=== PATIENT | female | born 1975 | race African-American/Black ===

== ENCOUNTER 2016-06-10 17:37 | Emergency (ER) | payer OTHER ==
[~2016-06-10] VITALS: Ht 152.4 cm; Wt 60.9 kg
[~2016-06-10 17:37] MED LIST: FLAGYL500 MG PO; LATUDA40 MG PO; MEDROL DOSEPAK4 MG PO; MOTRIN800 MG PO; NAPROSYN500 MG PO; NOHOMEMEDS; PREDNISONE10 MG PO; PROVENTIL HFA6.7 GM IH; SEROQUEL50 MG PO; VALIUM5 MG PO; ZITHROMAX Z-PA250 MG PO; ZOLOFT
[2016-06-10 18:29] LABS: EOSINOPHIL (%) 0.4 % (0-5); IMMATURE GRANULOCYTE (%) 0.3 % (0.0-0.7); IMMATURE GRANULOCYTE COUNT 0.3 K/uL; LYMPHOCYTE COUNT 2.1 K/uL (1.0-2.8); MCH 29.8 PG (29.0-34.0); MCHC 33.9 G/DL (30.0-36.0); MEAN PLAT.VOLUME 10.7 uM^3 (9.5-12.4); MONOCYTE (%) 8.9 % (3-12); NEUTROPHIL (%) 70.5 % (45-76); NEUTROPHIL COUNT 7.5 K/uL (1.8-6.4); PLATELET COUNT 263 K/uL (156-360); RBC DIS.WIDTH-CV 12.3 % (11.8-14.6); RBC DIS.WIDTH-SD 38.8 % (39-53); RED BLOOD COUNT 4.09 M/uL (3.80-5.20); WHITE BLOOD COUNT 10.7 K/uL (4.1-10.2)
[2016-06-10 18:37] LABS: CHLORIDE 104 mEq/L (99-109); POTASSIUM 3.9 mEq/L (3.7-5.4); SODIUM 136 mEq/L (136-147)
[2016-06-10 18:39] LABS: GLUCOSE 90 mg/dL (70-99)
[2016-06-10 18:40] LABS: ANION GAP 9 MEQ/L (2-14)
[2016-06-10 18:43] LABS: ALKALINE PHOSPHATASE 88 IU/L (3-129); GFR ESTIMATE (CALCULATED) > 59 mL/min/
[2016-06-10 18:44] LABS: UREA NITROGEN (BUN) 5 mg/dL (9-23)
[2016-06-10 18:46] LABS: LIPASE 45 U/L (1.0-51.0)
[2016-06-10 18:52] LABS: QUANTITATIVE HCG < 4.0 MIU/ML
[2016-06-10] MEDS ORDERED: FLAGYL500 MG PO (21:11)
[2016-06-10] MEDS ORDERED: VIBRAMYCIN100 MG PO (21:11)
[2016-06-10] MEDS ORDERED: NORCO 7.5/321 TABLET PO (21:11)
[2016-06-10] MEDS ORDERED: MOTRIN800 MG PO (21:11)
[2016-06-10 21:42] VITALS: BP 116/85
[2016-06-13 13:32] LABS: CHLAMYDIA TRACHOMATIS NEGATIVE; NEISSERIA GONORRHOEAE POSITIVE
== END 2016-06-10 21:44 | disposition home or self-care (01) ==
LOC: EME → EDBD 17:37 → EME 21:44
PROVIDERS: Physician Assistant
DX: N73.9 Female pelvic inflammatory disease, unspecified (principal); N83.201 Unspecified ovarian cyst, right side; D25.9 Leiomyoma of uterus, unspecified; R11.2 Nausea with vomiting, unspecified; N20.0 Calculus of kidney; Z11.3 Encounter for screening for infections with a predominantly sexual mode of transmission; Z87.442 Personal history of urinary calculi; F17.200 Nicotine dependence, unspecified, uncomplicated
CPT/HCPCS: 74176; 76856; 80053; 81003; 83690; 84702; 85025; 87210; 87491; 87591; 99281; 99284; J0696; J3010

== ENCOUNTER 2016-11-26 19:37 | Emergency (ER) | payer OTHER ==
[~2016-11-26] VITALS: Ht 152.4 cm; Wt 63.2 kg
[~2016-11-26 19:37] MED LIST changes: +NORCO 7.5/321 TABLET PO; +VIBRAMYCIN100 MG PO
[2016-11-26 20:47] LABS: EOSINOPHIL (%) 0.5 % (0-5); HEMATOCRIT 36.8 % (36.0-46.0); IMMATURE GRANULOCYTE (%) 0.4 % (0.0-0.7); INSTRUMENT ABS NEUTROPHIL CT 5.5 K/uL; LYMPHOCYTE COUNT 1.3 K/uL (1.0-2.8); MCH 30.1 PG (29.0-34.0); MCHC 33.4 G/DL (30.0-36.0); MEAN PLAT.VOLUME 10.1 uM^3 (9.5-12.4); MONOCYTE (%) 8.6 % (3-12); MONOCYTE COUNT 0.7 K/uL (0-0.8); NEUTROPHIL (%) 72.4 % (45-76); NEUTROPHIL COUNT 5.5 K/uL (1.8-6.4); PLATELET COUNT 297 K/uL (156-360); RBC DIS.WIDTH-CV 12.7 % (11.8-14.6); RBC DIS.WIDTH-SD 41.9 % (39-53); RED BLOOD COUNT 4.09 M/uL (3.80-5.20); WHITE BLOOD COUNT 7.6 K/uL (4.1-10.2)
[2016-11-26 21:01] LABS: AMYLASE 84 IU/L (1-118); CHLORIDE 103 mEq/L (99-109); POTASSIUM 3.9 mEq/L (3.7-5.4); SODIUM 138 mEq/L (136-147)
[2016-11-26 21:02] LABS: GLUCOSE 111 mg/dL (70-99)
[2016-11-26 21:04] LABS: ANION GAP 11 MEQ/L (2-14)
[2016-11-26 21:06] LABS: GFR ESTIMATE (CALCULATED) > 59 mL/min/; SERUM ETHYL ALCOHOL < 10 mg/dL
[2016-11-26 21:07] LABS: UREA NITROGEN (BUN) 8 mg/dL (9-23)
[2016-11-26 21:09] LABS: LIPASE 42 U/L (1.0-51.0)
[2016-11-26 21:15] LABS: QUANTITATIVE HCG < 4.0 MIU/ML
[2016-11-26] MEDS ORDERED: NAPROSYN500 MG PO (21:46)
[2016-11-26 22:28] VITALS: BP 139/122
== END 2016-11-26 22:33 | disposition home or self-care (01) ==
LOC: TRA 19:37
PROVIDERS: Emergency Medicine
DX: S81.011A Laceration without foreign body, right knee, initial encounter (principal); S80.01XA Contusion of right knee, initial encounter; V03.90XA Pedestrian on foot injured in collision with car, pick-up truck or van, unspecified whether traffic or nontraffic accident, initial encounter; Z87.442 Personal history of urinary calculi; F17.200 Nicotine dependence, unspecified, uncomplicated
CPT/HCPCS: 73560; 80048; 81003; 82150; 83690; 84702; 85025; 86870; 86900; 86901; 86905; 99281; 99285; G0480; J2270; J2405

== ENCOUNTER 2017-12-07 01:15 | Emergency (ER) | payer OTHER ==
[~2017-12-07 01:15] MED LIST changes: +PERCOCET 5/31 TABLET PO
== END 2017-12-07 01:50 | disposition left against medical advice (07) ==
LOC: EME 01:15
DX: M54.2 Cervicalgia (principal); M54.9 Dorsalgia, unspecified; Z11.3 Encounter for screening for infections with a predominantly sexual mode of transmission; Z53.21 Procedure and treatment not carried out due to patient leaving prior to being seen by health care provider